=== PATIENT | female | born 1990 | race African-American/Black ===

== ENCOUNTER 2017-09-08 22:54 | Inpatient (IN) | payer OTHER ==
[~2017-09-08] VITALS: Ht 162.6 cm; Wt 113.0 kg
--- NOTE | ~2017-09-08 | HC ---
[facility] [place] [address] CONSULTATION Name: KARLA DEE Room #: 456-P ADM IN M.R.#: [id number] Admission: 09/09/17 Attend Phys: Joshua Mehta MD Discharge: Date of : 86 Report #: [id number] THIS REPORT FOR: //name// CC: [facility] physician/PCP Joshua Mehta TYPE OF REPORT: Infectious diseases consultation. REASON FOR CONSULTATION: I was asked to evaluate concerning eosinophilia and gastroenteritis. HISTORY OF PRESENT ILLNESS: The patient is a 27-year-old 8 weeks from her first child. The patient has been . She also had a Mirena IUD implant placed on 09/02/2017. She notes that on 06 of September, she had acute onset of abdominal pain associated with nausea, vomiting and diarrhea. No documented fever. Presented to [facility] Emergency Room and was dismissed on antiemetics. Symptoms persist and she was hospitalized at [facility] on 09/09/1817. . At the Emergency Room at [facility], she did have a CT scan of the abdomen and pelvis, which showed inflammation. No other workup was done according to the patient. She has had no fever, chills or sweats. Other household members including her , her child and her mother have been well. She did have an episode approximately 4 years ago but did not last like this and was considered more consistent with IBS. Following the presentation on 09/09/2017, she had EGD performed after repeat CT scan showed inflammation in the upper gastrointestinal tract. EGD was remarkable for nodular inflammatory change of the stomach and the duodenum. Biopsies were performed and are pending. She has been treated with ciprofloxacin and metronidazole. The metronidazole was discontinued several days ago. Considered she continued to have nausea. She has had no travel outside the [place]. Her stools now have normalized. Her vomiting has resolved. Still has abdominal discomfort mostly in the epigastric and left side. She has had no dysuria. No blood in her stools. No blood in her emesis. No blood in her urine. She has had no rash or arthritis symptoms. There has been no headache. She denies any oral ulcers or vaginal ulcers. The IUD that was placed on 09/02/2017 the day that she got sick has been removed. Stool studies have revealed Campylobacter antigen positive. She has not eaten any food that other members of her family have not also eaten. She is HIV negative. ALLERGIES: None. MEDICATIONS: Prior to admission, she was on vitamins. PAST MEDICAL HISTORY: Otherwise, noncontributory. FAMILY HISTORY: Otherwise, noncontributory. SOCIAL HISTORY: Otherwise, noncontributory. [address] [address] CONSULTATION Name: DEEVERNELLROSA Griffin Room #: 456-P [facility] IN M.R.#: [id number] Admission: 09/09/17 Attend Phys: Joshua Mehta MD Discharge: Date of : 88 Report #: [id number] REVIEW OF SYSTEMS: As noted above. PHYSICAL EXAMINATION: VITAL SIGNS: She is afebrile, hemodynamically stable. GENERAL: She is alert and cooperative and pleasant, in no acute distress. HEENT: Unremarkable. NECK: Supple. No adenopathy. CHEST: Clear. HEART: Regular. ABDOMEN: Soft with tenderness in the epigastric region and left mid to lower abdomen. No guarding or rebound. No masses appreciated. EXTREMITIES: Unremarkable. NEUROLOGICAL: Normal. RADIOLOGICAL DATA: CT scan as noted above. LABORATORY DATA: Sodium 139, potassium 3.6, bicarbonate 21 and creatinine 1.0. Liver function tests normal. Hemoglobin 12.7; white count 16.5 and platelet count 269,000. Differential 46% neutrophils, 23% lymphs and 31% eosinophils. Peripheral smear pending. Beta hCG negative. Vitamin B12 1000. Urinalysis 3+ protein, 2+ ketones, 2+ bilirubin and many rbc's. IMPRESSION: A 27-year old with eosinophilia associated with nodular gastroenteritis involving the upper gastrointestinal tract. CT scan did not show thickening of the colon, although the patient has not had a colonoscopy to confirm the mucosal changes there. Overall, she does seem to be improved from last week. 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 I am awaiting biopsies of her upper gastrointestinal tract mucosa. This would help confirm this diagnosis. Her Campylobacter antigen is positive, although the time course seems a bit long for this and the degree of eosinophilia is unusual. That in fact that she ate all the same things that her family has eaten and no one else has gotten sick. However, is 2 months , therefore, relatively immunosuppressed at this time. I am not aware of if intrauterine device causing this type of a presentation. Unlikely to have lymphoma or other vasculitis such as Churg-Kacie, but we will need further evaluation. RECOMMENDATION: I agree with her ciprofloxacin treatment at this time. I would obtain chest x-ray, sedimentation rate immunoglobulins including IgE. Check stools for ova and parasite including Giardia, cryptosporidium and colonic parasites repeat a urinalysis to evaluate for proteinuria and check ANCA. Continue with hydration and slowly advancing her diet. We will make further [address] [address] CONSULTATION Name: KARLA DEE Room #: 456-P ADM IN M.R.#: [id number] Admission: 09/09/17 Attend Phys: Joshua Mehta MD Discharge: Date of : 86 Report #: [id number] recommendations following studies. Peripheral smear is also pending and we will make call to Pathology to expedite her lab results. <ELECTRONICALLY SIGNED> By: Geremias Gillette MD 09/15/17 0850 [id number] [id number] Geremias Gillette MD /nt
--- NOTE | ~2017-09-08 | P ---
[facility] [place] [address] PROCEDURE REPORT Name: KARLA DEE Room #: 456-P [facility] IN M.R.#: [id number] Admission: 09/09/17 Attend Phys: Joshua Mehta MD Discharge: Date of : 88 Report #: [id number] THIS REPORT FOR: //name// CC: [facility] physician/PCP Joshua Mehta BRIEF HISTORY: The patient is a 27-year-old woman who is 8 weeks , but has recently developed severe abdominal pain with radiation to her back. She has an elevated white count and an eosinophil count of 22%. She also has an abnormal CT of the abdomen with thickening of the esophagus, stomach and duodenum. She presents for an endoscopic evaluation. PREOPERATIVE DIAGNOSIS: Abnormal CT of the upper GI tract and abdominal pain. POSTOPERATIVE DIAGNOSES: 1. Moderate nodular gastritis, primarily antrum. 2. Thickened folds of proximal duodenum. MEDICATIONS: Deep sedation with propofol per anesthesia. SPECIMEN: 1. Biopsies of duodenum. 2. Biopsies of gastritis. 3. Biopsies of esophagus. ESTIMATED BLOOD LOSS: 3 mL. PROCEDURE: EGD with biopsy. FINDINGS: Prior to propofol sedation, procedure of upper endoscopy was discussed with the patient as well as potential risks, benefits and complications. She indicates she understands and desires to proceed. DESCRIPTION OF PROCEDURE: With the patient in the left lateral decubitus position, the Medlioi video endoscope was inserted in the cervical esophagus under direct vision without difficulty. Examination of this organ through its entire length revealed normal esophageal mucosa down to the squamocolumnar junction. She was noted to have thickening on the CT of the esophagus, but no mucosal abnormalities were seen. No strictures or mass lesions were seen. Random biopsies were obtained. The squamocolumnar junction was normal. The scope was advanced into the stomach, which was examined on end view as well as retroflexed views. There was a pattern of a diffuse gastritis with fairly prominent nodular changes in the antrum and also the distal body of the stomach. No strictures, masses or bleeding lesions were seen. Upon retroflexion, there was erythema in the antrum, which is likely the result of her recent vomiting. No mass lesions were seen. Multiple biopsies obtained in the stomach. The scope was advanced in the duodenum. Examination of the duodenal bulb revealed normal mucosa. [address] [address] PROCEDURE REPORT Name: KARLA DEE Room #: 456-P [facility] IN .R.#: [id number] Admission: 09/09/17 Attend Phys: Joshua Mehta MD Discharge: Date of : 86 Report #: [id number] However, in particular the second portion of the duodenum, she was noted to have diffuse thickening and edema of the folds as well as some erythema. No strictures or ulcers were seen. Multiple biopsies were again obtained. At that point, the scope was slowly withdrawn and careful circumferential views confirmed the above findings. The patient tolerated the procedure well. DISPOSITION: The patient with abdominal pain as well as abnormal CT of the upper GI tract and eosinophilia with the above-mentioned findings. We will follow up on biopsies especially with regards to possibly eosinophilic gastroenteritis. In the meantime, we will treat symptomatically. The patient notes that the pain is actually improved today. <ELECTRONICALLY SIGNED> By: Raffy Moya MD 09/16/17 1155 [id number] [id number] Raffy Moya MD /nt
--- NOTE | ~2017-09-08 | HC ---
[facility] [place] [address] CONSULTATION Name: KARLA DEE Room #: 456-P ADM IN M.R.#: [id number] Admission: 09/09/17 Attend Phys: Joshua Mehta MD Discharge: Date of : 86 Report #: [id number] THIS REPORT FOR: //name// CC: [facility] physician/PCP Joshua Mehta DATE OF SERVICE: 09/12/2017 REASON FOR CONSULTATION: Eosinophilia. REQUESTING PHYSICIAN: Dr. Howard. HISTORY OF PRESENT ILLNESS: The patient is a pleasant 27-year-old woman, 8 weeks , who was in her usual health until 5 days ago. She developed nausea, vomiting and diarrhea acutely, symptoms progressed. She was not able to keep anything down and was admitted to the hospital with acute GI symptoms. She was found to have high eosinophils on peripheral blood. GI consult was obtained. GI workup is in process. Hematology consult is obtained because of eosinophilia. The patient is doing okay. She does not have complaints of any skin rash, denies hives, denies angioedema. Denies fevers, weight loss, does not have arthralgia. She does not have any shortness of breath, cough, asthma or sinus problems. PAST MEDICAL HISTORY: Unremarkable. She has been healthy. SOCIAL HISTORY: She is at home now taking care of her baby. She has not been back to work yet. She does not drink alcohol excessively. FAMILY HISTORY: Noncontributory. There is no family history of myeloproliferative disorders or lymphoproliferative disorders. REVIEW OF SYSTEMS: See above. PHYSICAL EXAMINATION: GENERAL: Reveals mildly overweight woman, not in acute distress. VITAL SIGNS: Blood pressure 139/89, heart rate is 98, temperature 97.8, respirations 18. HEENT: Does not reveal thrush. HEART: Normal S1, S2. LYMPHS: There is no cervical, supraclavicular, or axillary lymphadenopathy. ABDOMEN: Soft, tender on palpation diffusely. No guarding, no rebound. EXTREMITIES: Lower extremities, no edema. MENTAL STATUS: Alert, oriented x 3. SKIN: Does not reveal any rash. [facility] [address] [place] [address] CONSULTATION Name: KARLA DEE Room #: 456-P [facility] IN [facility].#: [id number] Admission: 09/09/17 Attend Phys: Joshua Mehta MD Discharge: Date of : 86 Report #: [id number] LABORATORY DATA: White count on admission 17.4, hemoglobin 14.2, MCV 82.5, platelets 325, 21% lymphocytes, 3% monocytes, 22% eosinophils, 54% neutrophils. Today, white count is 16.2, hemoglobin 14.5, platelets 258, 23% lymphocytes, 31% eosinophils, absolute eosinophil count 2800. Sodium 139, potassium 3.9, BUN 12, creatinine 1.0. Total protein 7.6, albumin 3.8. CT of the abdomen and pelvis shows normal liver and spleen, shows diffuse thickening of distal esophagus, duodenum and proximal small bowel consistent with enteritis. ASSESSMENT AND PLAN: Eosinophilia. I agree with Dr. Howard that clinical presentation is most likely consistent with eosinophilic enteritis. Stool ova and parasites studies are pending. Her smear is normal sized, which is not consistent with myeloproliferative disorders. I will ask pathologist to review peripheral smear as no immature cells are reported. I am going to order a B12 level. There are no signs of lymphoproliferative disorders. I will consider to order flow cytometry if it is necessary. Thank you very much for allowing me to participate in care of this patient. Dr. Echevarria will follow the patient. By: 1122 1604 Melina Esteves MD /nt
[~2017-09-08 22:54] MED LIST: AUGMENTIN 875875 MG PO; BENTYL 20 MG TA20 M1 PO; IBUPROFEN 600600 M1 PO; NOHOMEMEDICATIONS; NORCO 5-325 TA1 EACH PO; PEPCID40 MG PO; PREDNISONE 20 M20 MG PO; [UNRECOGNIZED DRUG - OTHER] PO
[2017-09-08 23:12] VITALS: BP 145/84
[2017-09-08 23:28] LABS: URINE BILIRUBIN 2+ (Negative); URINE BLOOD 3+ (Negative); URINE CLARITY CLOUDY; URINE COLOR RED; URINE GLUCOSE-RANDOM* NEGATIVE (Negative); URINE KETONES 2+ (Negative); URINE LEUKOCYTES-REFLEX NEGATIVE (Negative); URINE PROTEIN (DIPSTICK) 3+ (Negative); URINE SPECIFIC GRAVITY >= 1.030 (1.005-1.035)
[2017-09-08 23:31] LABS: URINE NITRITE-REFLEX POSITIVE (Negative)
[2017-09-08 23:35] LABS: ICTOTEST (BILI CONFIRMATORY) Positive (Negative)
[2017-09-08 23:37] LABS: URINE RBC >20 Many /HPF (0-2)
[2017-09-08 23:38] LABS: HYALINE CASTS 4-10 Moderate /LPF (None Seen); MUCUS 4-6 Moderate strn/LPF (None Seen); SQUAMOUS 0-3 Few /LPF (0-3); TRANSITIONAL EPITHEL CELL 0-3 Few /LPF (None Seen)
[2017-09-08 23:39] LABS: BACTERIA-REFLEX 1-9 Few /HPF (None Seen); CRYSTALS None Seen /LPF (None Seen); URINE WBC-REFLEX 0-5 Rare /HPF (0-5)
[2017-09-08 23:40] LABS: FINE GRANULAR CASTS 0-3 Few /LPF (None Seen)
[2017-09-08 23:44] LABS: HEMATOCRIT 43.7 % (37.0-47.0); HEMOGLOBIN 14.2 gm/dL (12.0-15.0); MCH 26.8 pg (26.0-34.0); MCHC 32.5 g/dL (28.0-37.0); MCV 82.5 fL (80.0-100.0); PLATELET COUNT 325 thou/uL (150-400); RDW 15.1 % (10.5-14.5); WBC 17.4 thou/uL (4.0-11.0)
[2017-09-08 23:51] LABS: CALCIUM 9.2 mg/dL (8.5-10.1); CREATININE 1.2 mg/dL (0.6-1.0); POTASSIUM 3.7 mmol/L (3.5-5.1)
[2017-09-08 23:57] LABS: ALBUMIN 3.8 g/dL (3.4-5.0); DIRECT BILIRUBIN 0.1 mg/dL (<0.1-0.3); MAGNESIUM 1.8 mg/dL (1.8-2.4); TOTAL BILIRUBIN 0.5 mg/dL (<0.1-1.0); TOTAL PROTEIN 7.6 g/dL (6.4-8.2)
[2017-09-09 00:16] LABS: ABSOLUTE NEUTROPHILS 9.4 thou/uL (1.4-8.2)
[2017-09-09 03:29] VITALS: BP 127/74
[2017-09-09 03:45] VITALS: BP 119/61
[2017-09-09] MEDS ORDERED: ZOFRAN ODT4 MG DISSOLVE (04:07)
[2017-09-09] MEDS ORDERED: [UNRECOGNIZED DRUG - OTHER] PO (04:07)
[2017-09-09] MEDS ORDERED: TARON-C DHA CA1 EACH PO (04:11)
[2017-09-09 09:35] VITALS: BP 103/47
[2017-09-09 16:24] VITALS: BP 121/69
[2017-09-09 19:19] VITALS: BP 135/80
[2017-09-10 04:21] VITALS: BP 109/57
[2017-09-10 06:39] LABS: HEMATOCRIT 40.7 % (37.0-47.0); HEMOGLOBIN 13.3 gm/dL (12.0-15.0); MCH 26.9 pg (26.0-34.0); MCHC 32.6 g/dL (28.0-37.0); MCV 82.4 fL (80.0-100.0); RBC 4.94 mil/uL (4.20-5.00); RDW 15.3 % (10.5-14.5); WBC 16.1 thou/uL (4.0-11.0)
[2017-09-10 06:48] LABS: CALCIUM 8.6 mg/dL (8.5-10.1); MAGNESIUM 1.6 mg/dL (1.8-2.4); POTASSIUM 3.6 mmol/L (3.5-5.1)
[2017-09-10 07:59] VITALS: BP 127/79
[2017-09-10 13:41] LABS: PROT/CREAT RATIO 0.2; URINE CREATININE-RANDOM* 422.9 mg/dL; URINE PROTEIN-RANDOM* 93.1 mg/dL (<11.9)
[2017-09-10 15:59] VITALS: BP 119/82
[2017-09-10 19:14] VITALS: BP 108/72
[2017-09-11 04:03] VITALS: BP 120/79
[2017-09-11 08:14] VITALS: BP 115/88
[2017-09-11 09:32] LABS: HEMOGLOBIN 14.5 gm/dL (12.0-15.0); MCH 27.4 pg (26.0-34.0); MCV 83.2 fL (80.0-100.0); PLATELET COUNT 258 thou/uL (150-400); RBC 5.29 mil/uL (4.20-5.00); RDW 15.6 % (10.5-14.5); WBC 16.2 thou/uL (4.0-11.0)
[2017-09-11 10:13] LABS: ABSOLUTE NEUTROPHILS 7.5 thou/uL (1.4-8.2)
[2017-09-11 10:14] LABS: ANISOCYTOSIS 1+
[2017-09-11 16:11] VITALS: BP 153/116
[2017-09-11 19:47] VITALS: BP 139/94
[2017-09-12 03:32] VITALS: BP 147/84
[2017-09-12 08:39] VITALS: BP 139/89
[2017-09-12 15:56] VITALS: BP 139/91
[2017-09-12 19:57] VITALS: BP 123/67
[2017-09-13 04:27] VITALS: BP 132/82
[2017-09-13 16:47] VITALS: BP 126/68
[2017-09-13 20:07] VITALS: BP 135/93
[2017-09-14 06:25] VITALS: BP 122/88
[2017-09-14 08:00] VITALS: BP 145/98
[2017-09-14 12:01] LABS: HEMATOCRIT 38.3 % (37.0-47.0); HEMOGLOBIN 12.7 gm/dL (12.0-15.0); MCH 27.2 pg (26.0-34.0); MCHC 33.3 g/dL (28.0-37.0); MCV 81.6 fL (80.0-100.0); RBC 4.69 mil/uL (4.20-5.00); RDW 15.5 % (10.5-14.5); WBC 16.5 thou/uL (4.0-11.0)
[2017-09-14 16:00] VITALS: BP 139/93
[2017-09-14 19:47] VITALS: BP 140/90
[2017-09-15 04:00] VITALS: BP 122/92
[2017-09-15 04:11] LABS: IgA 125 mg/dL (87-352); IgG 894 mg/dL (700-1600); IgM 125 mg/dL (26-217)
[2017-09-15 05:40] LABS: HEMATOCRIT 37.9 % (37.0-47.0); HEMOGLOBIN 12.5 gm/dL (12.0-15.0); MCH 27.2 pg (26.0-34.0); MCHC 33.1 g/dL (28.0-37.0); MCV 82.2 fL (80.0-100.0); PLATELET COUNT 263 thou/uL (150-400); RBC 4.61 mil/uL (4.20-5.00); RDW 15.5 % (10.5-14.5); WBC 18.5 thou/uL (4.0-11.0)
[2017-09-15 05:41] LABS: CALCIUM 8.7 mg/dL (8.5-10.1); POTASSIUM 3.5 mmol/L (3.5-5.1)
[2017-09-15 07:52] LABS: ANISOCYTOSIS SLIGHT; POIKILOCYTOSIS SLIGHT
[2017-09-15 08:00] VITALS: BP 139/84
[2017-09-15 10:11] LABS: URINE BLOOD NEGATIVE (Negative); URINE CLARITY CLEAR; URINE COLOR YELLOW; URINE GLUCOSE-RANDOM* NEGATIVE (Negative); URINE KETONES 3+ (Negative); URINE LEUKOCYTES NEGATIVE (Negative); URINE NITRITE NEGATIVE (Negative); URINE PROTEIN (DIPSTICK) 1+ (Negative); URINE SPECIFIC GRAVITY >= 1.030 (1.005-1.035); URINE UROBILINOGEN 0.2 E.U./dl (0.2-1.0)
[2017-09-15 10:19] LABS: ICTOTEST (BILI CONFIRMATORY) Negative (Negative); URINE BILIRUBIN NEGATIVE (Negative)
[2017-09-15 10:22] LABS: MUCUS 0-3 Light strn/LPF (None Seen); SQUAMOUS >10 Many /LPF (0-3)
[2017-09-15 10:23] LABS: CASTS None Seen /LPF (None Seen); CRYSTALS None Seen /LPF (None Seen); URINE RBC None Seen /HPF (0-2); URINE WBC 0-5 Rare /HPF (0-5)
[2017-09-15 19:22] VITALS: BP 138/95
[2017-09-16 07:02] LABS: ABSOLUTE NEUTROPHILS 7.7 thou/uL (1.4-8.2); BASOPHILS 0.2 % (0.0-2.0); EOSINOPHILS 12.6 % (0.0-3.0); HEMATOCRIT 33.9 % (37.0-47.0); HEMOGLOBIN 11.3 gm/dL (12.0-15.0); MCH 27.1 pg (26.0-34.0); MCHC 33.3 g/dL (28.0-37.0); MCV 81.4 fL (80.0-100.0); MONOCYTES 7.2 % (1.0-8.0); PLATELET COUNT 245 thou/uL (150-400); RBC 4.17 mil/uL (4.20-5.00); RDW 15.8 % (10.5-14.5)
[2017-09-16 07:52] LABS: CALCIUM 8.8 mg/dL (8.5-10.1); CREATININE 0.8 mg/dL (0.6-1.0); POTASSIUM 3.9 mmol/L (3.5-5.1)
[2017-09-16 08:29] VITALS: BP 128/84
[2017-09-16] MEDS ORDERED: AMOXICILLIN 50500 M1 PO (15:16)
[2017-09-16] MEDS ORDERED: CLARITHROMYCIN250 M2 PO (15:16)
[2017-09-16] MEDS ORDERED: PANTOPRAZOLE SO40 M1 PO (15:18)
[2017-09-16] MEDS ORDERED: NORCO 5-325 TA1 EACH PO (15:18)
[2017-09-16] MEDS ORDERED: PREDNISONE 10 M10 MG PO (15:20)
[2017-09-16 15:51] VITALS: BP 128/84
== END 2017-09-16 16:21 | disposition home or self-care (01) | DRG 372 ==
LOC: ER 22:54 → EROBS 09-09 02:40 → 4W 09-09 02:40
PROVIDERS: Emergency Medicine; Hospitalist; Internal Medicine Gastroenterology; Internal Medicine Hematology & Oncology; Nurse Practitioner; Nurse Practitioner Acute Care; Specialist
PROC: 0W9G3ZZ Drainage of Peritoneal Cavity, Percutaneous Approach (ICD-10-PCS; principal; 2017-09-09)
PROC: 0DB68ZX Excision of Stomach, Via Natural or Artificial Opening Endoscopic, Diagnostic (ICD-10-PCS; 2017-09-10)
PROC: 0DB58ZX Excision of Esophagus, Via Natural or Artificial Opening Endoscopic, Diagnostic (ICD-10-PCS; 2017-09-10)
PROC: 0DB98ZX Excision of Duodenum, Via Natural or Artificial Opening Endoscopic, Diagnostic (ICD-10-PCS; 2017-09-10)
PROC: 05HY33Z Insertion of Infusion Device into Upper Vein, Percutaneous Approach (ICD-10-PCS; 2017-09-14)
DX: A04.5 Campylobacter enteritis (principal); N39.0 Urinary tract infection, site not specified; R18.8 Other ascites; K52.81 Eosinophilic gastritis or gastroenteritis; D72.829 Elevated white blood cell count, unspecified; Z83.3 Family history of diabetes mellitus; Z82.0 Family history of epilepsy and other diseases of the nervous system; Z85.07 Personal history of malignant neoplasm of pancreas; Z79.899 Other long term (current) drug therapy
CPT/HCPCS: 10040; 27001; 62110; 62900; 70005

== ENCOUNTER 2018-01-18 22:57 | Emergency (ER) | payer OTHER ==
[~2018-01-18] VITALS: Ht 162.6 cm; Wt 77.1 kg
[~2018-01-18 22:57] MED LIST changes: +AMOXICILLIN 50500 M1 PO; +CLARITHROMYCIN250 M2 PO; +PANTOPRAZOLE SO40 M1 PO; +PREDNISONE 10 M10 MG PO; +TARON-C DHA CA1 EACH PO; +ZOFRAN ODT4 MG DISSOLVE; +[UNRECOGNIZED DRUG - OTHER] PO
[2018-01-18 23:35] LABS: BASOPHILS 0.3 % (0.0-2.0); EOSINOPHILS 5.6 % (0.0-3.0); HEMATOCRIT 37.9 % (37.0-47.0); HEMOGLOBIN 12.6 gm/dL (12.0-15.0); LYMPHOCYTES 21.5 % (24.0-44.0); MCH 26.4 pg (26.0-34.0); MCHC 33.4 g/dL (28.0-37.0); MCV 79.1 fL (80.0-100.0); MONOCYTES 7.5 % (1.0-8.0); PLATELET COUNT 267 thou/uL (150-400); POLYS 65.1 % (36.0-66.0); RBC 4.79 mil/uL (4.20-5.00); RDW 15.7 % (10.5-14.5); WBC 12.3 thou/uL (4.0-11.0)
[2018-01-18 23:35] LABS: URINE BILIRUBIN NEGATIVE (Negative); URINE BLOOD NEGATIVE (Negative); URINE CLARITY SL CLOUDY; URINE COLOR YELLOW; URINE GLUCOSE-RANDOM* NEGATIVE (Negative); URINE KETONES TRACE (Negative); URINE LEUKOCYTES-REFLEX NEGATIVE (Negative); URINE NITRITE-REFLEX NEGATIVE (Negative); URINE PROTEIN (DIPSTICK) 2+ (Negative); URINE SPECIFIC GRAVITY >= 1.030 (1.005-1.035); URINE UROBILINOGEN 0.2 E.U./dl (0.2-1.0)
[2018-01-18 23:42] LABS: CALCIUM 9.6 mg/dL (8.5-10.1)
[2018-01-18 23:47] LABS: CASTS None Seen /LPF (None Seen); MUCUS 0-3 Light strn/LPF (None Seen); SQUAMOUS >10 Many /LPF (0-3); URINE RBC None Seen /HPF (0-2); URINE WBC-REFLEX None Seen /HPF (0-5)
[2018-01-18 23:48] LABS: ALBUMIN 3.8 g/dL (3.4-5.0); TOTAL BILIRUBIN 0.3 mg/dL (<0.1-1.0); TOTAL PROTEIN 8.5 g/dL (6.4-8.2)
[2018-01-18 23:48] LABS: BACTERIA-REFLEX 1-9 Few /HPF (None Seen); CRYSTALS None Seen /LPF (None Seen)
[2018-01-19] LABS: CALCIUM OXALATE 4-10 Moderate /LPF (None Seen)
[2018-01-19] MEDS ORDERED: PRILOSEC 20 MG20 MG PO (00:28)
[2018-01-19] MEDS ORDERED: ACETAMINOPHEN-1 EAC1 PO (00:28)
[2018-01-19] MEDS ORDERED: ZOFRAN ODT4 MG PO (00:28)
== END 2018-01-19 01:43 | disposition home or self-care (01) ==
LOC: ER 22:57
PROVIDERS: Emergency Medicine
DX: R10.30 Lower abdominal pain, unspecified (principal); R11.2 Nausea with vomiting, unspecified; R19.7 Diarrhea, unspecified

== ENCOUNTER 2019-09-11 22:06 | Emergency (ER) | payer OTHER ==
[~2019-09-11] VITALS: Ht 162.6 cm; Wt 125.2 kg
[~2019-09-11 22:06] MED LIST changes: +ACETAMINOPHEN-1 EAC1 PO; +PRILOSEC 20 MG20 MG PO; +ZOFRAN ODT4 MG PO
[2019-09-11 22:28] LABS: URINE BILIRUBIN NEGATIVE (Negative); URINE BLOOD NEGATIVE (Negative); URINE CLARITY CLEAR; URINE COLOR YELLOW; URINE GLUCOSE-RANDOM* NEGATIVE (Negative); URINE KETONES NEGATIVE (Negative); URINE LEUKOCYTES-REFLEX NEGATIVE (Negative); URINE NITRITE-REFLEX NEGATIVE (Negative); URINE PROTEIN (DIPSTICK) NEGATIVE (Negative); URINE SPECIFIC GRAVITY >= 1.030 (1.005-1.035); URINE UROBILINOGEN 0.2 E.U./dl (0.2-1.0)
[2019-09-11 23:38] LABS: HEMOGLOBIN 12.2 gm/dL (12.0-15.0); MCH 26.4 pg (26.0-34.0); MCHC 32.9 g/dL (28.0-37.0); MCV 80.3 fL (80.0-100.0); PLATELET COUNT 274 thou/uL (150-400); RBC 4.61 mil/uL (4.20-5.00); WBC 12.8 thou/uL (4.0-11.0)
[2019-09-11 23:44] LABS: CALCIUM 9.3 mg/dL (8.5-10.1); POTASSIUM 3.6 mmol/L (3.5-5.1)
[2019-09-11 23:51] LABS: ALBUMIN 3.6 g/dL (3.4-5.0); TOTAL BILIRUBIN 0.2 mg/dL (<0.1-1.0); TOTAL PROTEIN 7.9 g/dL (6.4-8.2)
[2019-09-11] MEDS ORDERED: PRILOSEC OTC20 MG PO (23:59)
[2019-09-11] MEDS ORDERED: LEVSIN0.125 MG PO (23:59)
[2019-09-12 00:04] LABS: ABSOLUTE NEUTROPHILS 11.9 thou/uL (1.4-8.2)
[2019-09-12 00:05] LABS: PLATELET ESTIMATE NORMAL
[2019-09-12 00:38] VITALS: BP 128/77
== END 2019-09-12 00:51 | disposition home or self-care (01) ==
LOC: ER 22:06
PROVIDERS: Emergency Medicine
DX: R10.12 Left upper quadrant pain (principal); R19.7 Diarrhea, unspecified; R11.2 Nausea with vomiting, unspecified; R10.32 Left lower quadrant pain